=== PATIENT | female | born 1970 | race Caucasian/White ===

== ENCOUNTER 2020-09-01 01:25 | Outpatient (CLI) | payer OTHER, SELFPAY ==
--- NOTE | 2020-09-01 | DI.MAMMO_ITS ---
EXAM: MG MAMMO SCREENING CLINICAL HISTORY: SCREENING, Z12.31. TECHNIQUE: Bilateral full field digital CC and MLO mammographic images were obtained with 3D tomosyn thesis and utilizing computer aided detection (CAD). COMPARISON: Prior mammograms dating back to 2014, the most recent being 2016. Left breast ultrasoun d performed May 2017 was also reviewed. FINDINGS: In the right breast on 3D MLO imaging there is a subtle suggestion of an oval noncalcified 14 by 10 m illimeter nodule, this located 10 centimetres in from the nipple. In the left breast on 3D MLO imaging there is a well-defined noncalcified nodule measuring 7 x 6 mill imeters, lateral of center and located 8 centimetres in from the nipple. There are no malignant-appe aring microcalcification groups in either breast. There is no significant architectural distortion n or skin thickening-retraction. IMPRESSION: There is at least 1 nodule in each breast as described above. Given these bilateral mammographic fin dings, the findings on prior ultrasound examination of May 2017, and the density of her fibroglan dular tissue I recommend bilateral breast ultrasound. BI-RADS Category 0 - Assessment Incomplete: Need additional imaging evaluation Breast Density - Category C - Heterogeneously dense Breast density Category C or D implies that the patient has dense breast tissue. Dense breast tissue can make it harder to find cancer on a mammogram. Dense breast tissue is also associated with an incr eased risk of breast cancer. This information about the result of the mammogram report was provided to the patient to raise their awareness. Use this report when you speak with the patient about their risks for breast cancer, which includes their family history. At that time, you may recommend additional screening tests (Ultrasoun d or MRI) as these tests may add significant information. A negative radiographic report should not delay biopsy if a dominant or clinically suspicious mass is present. Up to ten percent of cancers are not identified on mammography. A negative report may reinforce clinical impression. Adenosis and dense breasts may obscure an underlying neoplasm. False positive reports average 6 to 10%. Patient will receive a letter notifying them of these results.
== END 2020-09-01 01:45 ==
PROVIDERS: PCP Family Medicine; Visit Provider Family Medicine
DX: Z12.31 Encounter for screening mammogram for malignant neoplasm of breast (principal); R92.8 Other abnormal and inconclusive findings on diagnostic imaging of breast
CPT/HCPCS: 77063; 77067

== ENCOUNTER 2020-09-02 03:01 | Outpatient (CLI) | payer OTHER, SELFPAY ==
--- NOTE | 2020-09-02 | DI.US_ITS ---
EXAM: US BREAST LT LIMITED CLINICAL HISTORY: F/U MAMMO, INCONLUSIVE,LT BREAST NODULE,DENSE BREAST TISSUE. TECHNIQUE: Ultrasound of the left breast was performed. COMPARISON: Prior mammograms were reviewed. Most recent mammogram 09/01/2020 FINDINGS: At 12 o'clock position there is a 5 x 4 millimeter microcyst. This most probably corresponds to the finding on the mammogram. At the 2 o'clock position there is a hemorrhagic microcyst measuring 7 x 4 millimeters. At the 6 o'c lock position there is a 5 x 3 millimeter microcyst. No other focal left breast findings.. No facet findings in the immediate retroareolar region. No adenopathy in the left axillary region IMPRESSION: Left breast microcysts as well as a hemorrhagic microcyst (2 o'clock position). Appropriate follow-up is to keep this patient yearly mammogram schedule, with earlier imaging if a se lf detected breast change is noted. BI-RADS Category 2 - Benign Findings Breast Density - Category C - Heterogeneously dense Breast density Category C or D implies that the patient has dense breast tissue. Dense breast tissue can make it harder to find cancer on a mammogram. Dense breast tissue is also associated with an incr eased risk of breast cancer. This information about the result of the mammogram report was provided to the patient to raise their awareness. Use this report when you speak with the patient about their risks for breast cancer, which includes their family history. At that time, you may recommend additional screening tests (Ultrasoun d or MRI) as these tests may add significant information. A negative radiographic report should not delay biopsy if a dominant or clinically suspicious mass is present. Up to ten percent of cancers are not identified on mammography. A negative report may reinforce clinical impression. Adenosis and dense breasts may obscure an underlying neoplasm. False positive reports average 6 to 10%. Patient will receive a letter notifying them of these results.
--- NOTE | 2020-09-02 | DI.US_ITS ---
EXAM: US BREAST RT LIMITED CLINICAL HISTORY: F/U MAMMO, INCONCLUSIVE,? NODULE RT BREAST. TECHNIQUE: Ultrasound of the right breast was performed. All 4 quadrants scanned as well as immedia te retroareolar region and the axillary region. COMPARISON: Prior mammograms were reviewed. Most recent mammogram 09/01/2020 FINDINGS: At the 9 o'clock position there is a 15 x 16 millimeter cyst which corresponds to the finding on the mammogram. Adjacent to this is a slightly smaller cyst. At the 8 o'clock position there is a 10 x 5 millimeter cyst noted. At the 12 o'clock supra-areolar position there is a 6 x 3 millimeter microcysts. At the 7 o'clock po sition there are 2 hemorrhagic microcyst in both measuring 5-6 millimeters. At the 9 o'clock positio n there are 3 adjacent microcysts, the largest measuring 8 x 5 millimeters. No ominous solid lesions seen in the right breast. No worrisome areas of decreased through transmiss ion. IMPRESSION: Multiple cysts and microcysts. One of these cysts account for the finding on the recent mammogram. Most importantly, there are no solid lesions evident on this ultrasound examination Appropriate follow-up is to keep this patient on a yearly mammogram schedule. Recommend repeat bilat eral breast ultrasound examination of the time but X yearly mammogram, with earlier imaging if a self detected breast changes noted.. BI-RADS Category 2 - Benign Findings Breast Density - Category C - Heterogeneously dense Breast density Category C or D implies that the patient has dense breast tissue. Dense breast tissue can make it harder to find cancer on a mammogram. Dense breast tissue is also associated with an incr eased risk of breast cancer. This information about the result of the mammogram report was provided to the patient to raise their awareness. Use this report when you speak with the patient about their risks for breast cancer, which includes their family history. At that time, you may recommend additional screening tests (Ultrasoun d or MRI) as these tests may add significant information. A negative radiographic report should not delay biopsy if a dominant or clinically suspicious mass is present. Up to ten percent of cancers are not identified on mammography. A negative report may reinforce clinical impression. Adenosis and dense breasts may obscure an underlying neoplasm. False positive reports average 6 to 10%. Patient will receive a letter notifying them of these results.
== END 2020-09-02 03:21 ==
PROVIDERS: PCP Family Medicine; Visit Provider Family Medicine
DX: N60.02 Solitary cyst of left breast (principal); R92.8 Other abnormal and inconclusive findings on diagnostic imaging of breast; R92.2 Inconclusive mammogram; N60.01 Solitary cyst of right breast
CPT/HCPCS: 76642

== ENCOUNTER 2020-10-13 21:06 | Outpatient (REF) | payer OTHER, SELFPAY | END 2020-10-13 21:07 | disposition home or self-care (01) | LOC: LBN 21:06 | PROVIDERS: PCP Family Medicine; Visit Provider Nurse Practitioner Family | DX: R30.0 Dysuria (principal) | CPT/HCPCS: 87077; 87086; 87186 ==

== ENCOUNTER 2021-08-08 16:54 | Outpatient (REF) | payer OTHER, SELFPAY ==
[2021-08-08 14:52] LABS: Abs Immature Grans 0.01 10^3/uL (0.0-0.06); Absolute Basophil Count 0.03 10^3/uL (0.0-0.2); Absolute Eosinophil Count 0.08 10^3/uL (0.0-0.7); Absolute Lymphocyte Count 2.19 10^3/uL (1.2-3.4); Absolute Monocyte Count 0.47 10^3/uL (0.1-0.8); Absolute Neutrophil Count 2.95 10^3/uL (1.2-6.7); Basophils % 0.5; Eosinophils % 1.4; HGB 14.1 g/dL (11.2-15.7); Immature Grans % 0.2; Lymphocytes % 38.2; MCH 30.3 pg (27.0-33.0); MCHC 33.6 % (32.0-36.0); MCV 90.1 fL (80-95); MPV 9.7 fL (8.0-11.0); Monocytes % 8.2; Neutrophils % 51.5; Nucleated RBC 0 %; Platelet Count 323 10^3/uL (130-400); RBC 4.66 10^6/uL (3.93-5.22); RDW-SD 42.6 fL; WBC 5.73 10^3/uL (4.4-10.8)
[2021-08-08 15:03] LABS: Mono Screening Negative (Negative)
== END 2021-08-08 16:55 | disposition home or self-care (01) ==
LOC: LBN 16:54
PROVIDERS: PCP Family Medicine; Visit Provider Nurse Practitioner Family
DX: J02.9 Acute pharyngitis, unspecified (principal)
CPT/HCPCS: 85025; 86308

== ENCOUNTER → 2023-03-29 00:33 | Outpatient (CLI) | payer BC, SELFPAY ==
--- NOTE | 2023-03-29 08:00 | DI.MAMMO_ITS ---
Exam(s) MAMMO SCREENING EXAM: MAMMO SCREENING CLINICAL HISTORY: SCREENING MAMMO FOR BREAST CANCER Z12.31 TECHNIQUE: Bilateral full field digital CC and MLO mammographic images were obtained with 3D tomosyn thesis and utilizing computer aided detection (CAD). COMPARISON: Available for comparison. FINDINGS: Masses/Architectural Distortion: None seen. Microcalcifications: No suspicious pleomorphic-type are seen. Skin Thickening/Nipple Retraction: None. IMPRESSION: 1. No significant interval change with no specific features of malignancy noted. 2. Unless there is more urgent need, screening mammography is recommended, as per [place] [employer] guidelines. BI-RADS Category 1 - Negative Breast Density - Category C - Heterogeneously dense Breast density category C or D implies that the patient has dense breast tissue. Dense breast tissue is very common and is not abnormal but dense breast tissue can make it harder to find cancer on a ma mmogram. Also, dense breast tissue may increase their breast cancer risk. This information about the result of the mammogram report was provided to the patient to raise their awareness. Use this report when you speak with the patient about their risks for breast cancer, which includes their family hist ory. At that time, you may recommend for more screening tests (Ultrasound or MRI) as they might be us eful based on their risk. A negative radiographic report should not delay biopsy if a dominant or clinically suspicious mass is present. Up to ten percent of cancers are not identified on mammography. A negative report may reinforce clinical impression. Adenosis and dense breasts may obscure an underlying neoplasm. False positive reports average 6 to 10%. Patient will receive a letter notifying them of these results.
== END ==
PROVIDERS: PCP Family Medicine; Visit Provider Family Medicine
DX: Z12.31 Encounter for screening mammogram for malignant neoplasm of breast (principal)
CPT/HCPCS: 77063; 77067

== ENCOUNTER 2023-07-10 06:58 | Day surgery (SDC) | payer OTHER, SELFPAY ==
--- NOTE | 2023-07-10 05:15 | W.ANESPRE ---
General Info Date of Service Date Performed: 07/10/23 Height: 5 ft 6 in Weight: 86.183 kg Body Mass Index (BMI): 30.7 Surgical Procedure: Operation Date: 07/10/23 08:20 Proposed Procedure Side Surgeon p Hans Kincaid MD Meds Allergies and Home Medications Allergies Allergy/AdvReac Type Severity Reaction Status Date / Time Penicillins Allergy Intermediate Skin Rash Verified 07/10/23 07:22 Sulfa (Sulfonamide Allergy Intermediate Skin Rash Verified 07/10/23 07:22 Antibiotics) Home Medication Medication Instructions Recorded bisacodyl 5 mg tablet,delayed 5 mg PO ONCE Colonoscopy Bowel 06/13/23 release (Dulcolax (bisacodyl)) Prep #4 tabs polyethylene glycol 3350 17 238 g PO ONCE Colonoscopy Bowel 06/13/23 gram/dose oral powder Prep #238 grams Current Visit Medications: Current Medications Generic Name Dose Route Start Last Admin Trade Name Freq PRN Reason Stop Dose Admin Ringer's Solution 1,000 mls @ 80 mls/hr 07/10/23 06:00 IV 08/08/23 23:59 INFUSION GERRI IV Miscellaneous Supplies 1 each 07/10/23 06:00 Iv Access IV 08/08/23 23:59 DIRECTED GERRI Sodium Chloride 0 ml 07/10/23 06:00 Normal Saline Flush 10 Ml Syr IV 08/08/23 23:59 PRN PRN Sodium Chloride 0 ml 07/10/23 06:00 Normal Saline 10 Ml Vial IJ 08/08/23 23:59 DIRECTED PRN Sterile Water 0 ml 07/10/23 06:00 Water,Injection,Sterile 10 Ml Vial IJ 08/08/23 23:59 DIRECTED PRN [facility] Medical History Medical History History of gestational diabetes Surgical History Surgical History History of section 1990 History of tonsillectomy DOS 1982 Tobacco Smoking/Tobacco Use Status: Never Alcohol Alcohol Intake: current Alcohol intake frequency: a few times a month Alcohol type: wine and hard liquor Substance Use Substance use: Never Substance use type: does not use Vital Signs and Lab Results Vital Signs Most Recent Vital Signs in EMR: Temp Pulse Resp BP Pulse Ox 36.5 C 86 18 142/92 H 97 07/10/23 07:27 07/10/23 07:27 07/10/23 07:27 07/10/23 07:27 07/10/23 07:27 Lab Results Blood Type / Crossmatch: No Data to Display Complete Blood Count: No Data to Display Complete Metabolic Panel: No Data to Display Liver Function Panel: No Data to Display Coagulation Panel: No Data to Display Cardiac Panel: No Data to Display Arterial Blood Gas: No Data to Display Venous Blood Gas: No Data to Display Pancreas Panel: No Data to Display Thyroid Panel: No Data to Display Infectious Disease: No Data to Display Blood Cultures: No Data to Display Toxicology Panel: No Data to Display Panel: No Data to Display Anesthesia Assessment and Plan Anesthesia History Personal History: No History of Anesthesia Complications Family History: No Family History of Anesthesia Complications Exercise Tolerance Exercise Tolerance: Metabolic Equivalents>4 Cardiac & Pulmonary Exam Cardiac Exam: Normal S1/S2 Heart Sounds Pulmonary Exam: Clear Bilateral Breath Sounds Implantable Cardiac Device Does patient have a Pacemaker or an ICD?: No Airway Exam Known Difficult Airway: No Mallampati Class: 3 Mouth Opening: Narrow (< 3cm) Thyromental Distance: Greater than 3 cm Neck Range of Motion: Full ROM Neck Circumference: Normal Teeth Condition: Normal Dentition ASA Classification ASA Score: ASA 2 Emergency Case?: No NPO Status NPO Status: NPO Clears >2 hours, Solids >8 hours Status Status: Negative HCG Anesthesia Plan Resuscitation Status: Full Code Anesthesia Technique: General Anesthesia Airway Planned: Natural Airway Monitors Used: Standard Monitors Preoperative Comments:: 52 yo female for colo. Sig PMHx: never smoker, occ EtOH.
[2023-07-10 07:27] VITALS: BP 142/92; PULSE 86; RESP 18; TEMP 36.5; O2SAT 97
[2023-07-10] MEDS: Lactated Ringers 1,000 ML 80 ML IV (07:33)
[2023-07-10 07:59] VITALS: BMI 30.7
--- NOTE | 2023-07-10 08:17 | COLE_ITS ---
Date of service: 07/10/23 Time of Service: 08:19 Colonoscopy Report Procedure: PROCEDURES PERFORMED: 1. Colonoscopy PREOPERATIVE DIAGNOSIS: Screening colonoscopy POSTOPERATIVE DIAGNOSIS: Grade 1 internal hemorrhoids, Diverticulosis SURGEON: Justyn Kincaid MD INDICATION for procedure: The patient is a 52-year-old woman with no symptoms. No family history of colon cancer. No prior colonoscopy. FINDINGS: Normal terminal ileum. No polyps. No inflammation. Moderate div erticular disease is present in the left colon but no stricture or active inflammation. Mild, grade 1 internal hemorrhoids. SURVEILLANCE?INTERVAL/FOLLOW-UP: 10 years. EBL: Minimal COMPLICATIONS: None QUALITY of prep: Excellent Procedure in detail: The patient gave written consent and was in agreement with the indications, the potential risks as well as the benefits of the procedure. He was taken to the endoscopy suite and laid in the left lateral decubitus position. A timeout was performed and anesthesia was administered which was tolerated well. I started the procedure. Digital rectal and visual examination was performed and grossly within normal limits. A well-lubricated flexible colonoscope was then introduced and passed without any notable difficulty all the way to the cecum identified by the ileocecal valve and the appendiceal orifice. The terminal ileum was briefly intubated and looked normal visually. The scope was then slowly withdrawn with the above-noted findings. The patient tolerated the procedure well and was taken to the PACU in hemodynamically stable condition.
--- NOTE | 2023-07-10 08:52 | W.PM.DSUDISC ---
Date of service: 07/10/23 Time of Service: 08:52 Discharge Plan Disposition Patient Disposition: Home Condition: Good Discharge Details Attending Provider: Burt Kincaid Primary Care Provider: Kaley Ventura Home Meds and New Rx's Prescriptions: No Action bisacodyl [Dulcolax (bisacodyl)] 5 mg tablet,delayed release (DR/EC) 5 mg PO ONCE Qty: 4 0RF Rx Instructions: Colonoscopy Bowel Prep- Per Instructions polyethylene glycol 3350 17 gram/dose powder 238 g PO ONCE Qty: 238 0RF Rx Instructions: Colonoscopy Bowel Prep- Per Instructions Discharge Instructions Additional Instructions: FINDINGS: No polyps or concerning lesions were found. Everything looks healthy. Diverticular findings were present today. This is extremely common, benign and nothing needs to be done about it as long as you do not have chronic symptoms from it. Mild hemorrhoid disease was also found today. Again, this is benign, extremely common and nothing needs to be done about it. Stand Alone Forms: Colonoscopy Post Instructions Activity:: Activity as Tolerated Diet:: As Tolerated
[2023-07-10 08:54] VITALS: BP 128/86; PULSE 82; RESP 16; TEMP 36.6; O2SAT 97
--- NOTE | 2023-07-10 08:56 | W.ANESPOSTOP ---
Postoperative Evaluation Date, Time and Location Date Performed: 07/10/23 Time Performed: 08:47 Patient Location: Day Surgery Unit Vital Signs Most Recent Imported Vital Signs: Most Recent Vital Signs Temp Pulse Resp BP Pulse Ox 36.6 C 82 16 128/86 97 07/10/23 08:54 07/10/23 08:54 07/10/23 08:54 07/10/23 08:54 07/10/23 08:54 Pain Score Most Recent Pain Score: Most Recent Pain Score Pain Level 0 07/10/23 08:54 Assessment Mental Status: Awake (Alert & Oriented to Patient Baseline) Airway and Respiratory Function: Patent airway with normal (patient baseline) respiratory exam Cardiovascular Function: Hemodynamically Stable Hydration Status: Adequately Hydrated Nausea & Vomiting: No Nausea or Vomiting Pain: Pt. Denies Any Pain Peripheral Nerve Block: Patient did not receive a nerve block
[2023-07-10 09:20] VITALS: BP 144/84; PULSE 66; RESP 16; TEMP 36.4; O2SAT 100
== END 2023-07-10 06:59 | disposition home or self-care (01) ==
PROVIDERS: PCP Family Medicine; Visit Provider Student in an Organized Health Care Education/Training Program
PROC: 0DJD8ZZ Inspection of Lower Intestinal Tract, Via Natural or Artificial Opening Endoscopic (ICD-10-PCS; CPT 45378; principal; 2023-07-10 08:15)
DX: Z12.11 Encounter for screening for malignant neoplasm of colon (principal); K64.0 First degree hemorrhoids; K57.30 Diverticulosis of large intestine without perforation or abscess without bleeding
CPT/HCPCS: 45378; 00123; J2001

== ENCOUNTER 2023-12-21 07:27 | Emergency (ER) | payer BC, SELFPAY ==
[2023-12-21] VITALS (23 sets, daily range): BP systolic 145–198; BP diastolic 76–115; PULSE 65–84; RESP 11–33; TEMP 36.4; O2SAT 97
--- NOTE | 2023-12-21 07:41 | W.ED.GENAD ---
Discharge Plan Disposition Patient Disposition: Home Condition: Stable Discharge Details Clinical Impression: Abdominal pain Primary Care Provider: Kaley Ventura ED Provider: Pato Byrne Home Meds and New Rx's Prescriptions: New omeprazole 20 mg capsule,delayed release(DR/EC) 20 mg PO DAILY 28 Days Qty: 28 0RF Discharge Instructions Additional Instructions: Your gallbladder did not show any concerning findings, you do have findings that are concerning for possible uterine cancer which will need further outpatient workup. Follow-up with your primary care provider within 1 week, discussed the CT findings and that you should have a ultrasound of your uterus If you feel more ill or have new symptoms such as high fevers or persistent vomiting return to the emergency department for reevaluation HPI General Mode of arrival: ambulatory. Date/Time Provider Initiated Documentation: 12/21/23 07:29. Limitations to Documentation: no limitations. Information obtained by: patient. History of Present Illness 53 year old F presents to the emergency department with the chief complaint of Abdominal pain, described as moderate, Quality is described as stabbing, and is localized to the abdomen. Patient reports no radiation. and it has been constant. No relieving factors improve symptom(s), No exacerbating factors reported . Patient notes no other symptoms.; denies chest pain, fever/chills and shortness of breath. Patient did receive the following treatments prior to arrival, none Related Data Home Medications Medication Instructions Recorded Confirmed omeprazole 20 mg capsule,delayed 20 mg PO DAILY 28 days #28 caps 12/21/23 release Previous Rx's Medication Instructions Recorded omeprazole 20 mg capsule,delayed 20 mg PO DAILY 28 days #28 caps 12/21/23 release Allergies Allergy/AdvReac Type Severity Reaction Status Date / Time Penicillins Allergy Intermediate Skin Rash Verified 12/21/23 07:36 Sulfa (Sulfonamide Allergy Intermediate Skin Rash Verified 12/21/23 07:36 Antibiotics) General Stated Complaint: Abd Prob NANETTE: 3 Review of Systems All systems reviewed & are unremarkable except as noted in HPI and below Constitutional Constitutional: Denies chills, Denies fever(s) and Denies weakness Cardiovascular Cardiovascular: Denies chest pain and Denies dyspnea Respiratory Respiratory: Denies cough and Denies dyspnea Gastrointestinal Gastrointestinal: Reports abdominal pain, Reports nausea and Reports vomiting Genitourinary Genitourinary: Denies dysuria Integumentary/Breasts Skin/Breast: Denies rash Neurologic Neurologic: Denies weakness Exam Const General: no acute distress Orientation: alert [facility] Head: normal to inspection Ears: external ears normal General nose exam: external nose normal Mouth: moist mucous membranes Eyes General: appearance normal, both eyes and all related structures Neck Neck: normal visual inspection Resp Effort & Inspection: normal respiratory effort and able to speak in complete sentences Cardio Rate: regular rate GI Palpation: soft, not firm and tender Skin General skin exam: no rashes or lesions noted Neuro General: patient alert and patient oriented x3 Extrem General: normal to inspection Psych Mental Status: mental status grossly normal Course Vital Signs Vital signs: Vital Signs Respiratory Rate 33 H 12/21/23 07:34 Temperature 36.4 C L 12/21/23 07:37 Temperature Source Temporal Artery Scan 12/21/23 07:37 Pulse 79 12/21/23 07:37 Pulse 82 12/21/23 07:35 Respiratory Rate 19 12/21/23 07:37 Respiratory Effort Normal, Non-Labored 12/21/23 07:38 Blood Pressure 195/115 H 12/21/23 07:37 Blood Pressure Mean 144 12/21/23 07:35 Blood Pressure Position Supine 12/21/23 07:37 Pulse Oximetry 97 12/21/23 07:37 Oxygen Delivery Method Room Air 12/21/23 07:37 Oxygen Flow Rate 0 12/21/23 07:37 Pain Level 7 12/21/23 07:39 Medical Decision Making 53-year-old female with a history of prior otherwise no significant past medical history comes in with complaints of upper right-sided and epigastric pain since 3 AM. She says she went to bed feeling well, then woke up at 3 AM with sharp stabbing pain in the previous mentioned area. Also has had several episodes of vomiting. Denies any fevers, chest pain, difficulty breathing, lower abdominal pain. She is alert and oriented x 4 on arrival speaking clearly in no distress. She has a soft abdomen with tenderness in the epigastric and right upper quadrant. No lower abdominal tenderness, concern for cholecystitis versus pancreatitis among other entities. Will obtain CBC, CMP, lipase and obtain CT abdomen pelvis to evaluate further. Labs unremarkable, CT shows gastric thickening which could be due to underdistention but cannot exclude gastritis or neoplasm. Also the area decrease in his middle spleen which could be due to an infarct, has no left-sided pain so doubt that this is the cause of her pain, they also note nonspecific enlarged lymph nodes in her abdomen and has heterogeneous appearing endometrium cannot exclude neoplasm. Concern for possible endometrial cancer unfortunately do not have ultrasound the weekends. She is feeling improved, given the location of pain this could be due to gastritis, will place her on a PPI. She had no guarding or rebound or other concerning findings on abdominal exam so feel she can be worked up as an outpatient. I advised she should follow-up with her PCP to likely have a outpatient ultrasound done. Return precautions given Differential Diagnosis Differential Diagnosis: Cholecystitis, pancreatitis, biliary colic Medical Records Medical records reviewed: Yes I reviewed the patient's medical records. Imaging Data Radiologic Study: Attestation: I personally reviewed and interpreted this imaging study as follows: Imaging: CT Scan Radiologist's impression: IMPRESSION: 1. 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 This is of indeterminate chronicity. Clinical correlation and comparison with prior studies advised. 2. Gastric thickening likely secondary to underdistention. Cannot exclude gastritis or neoplasm. Follow-up if clinically warranted. 3. Heterogeneous endometrium. Cannot exclude endometrial pathology. Consider ultrasound or MRI for further evaluation as clinically warranted. 4. Additional findings as above Lab Data Lab results reviewed: Yes I reviewed the patient's lab results. Quality:SDOH Health Related Social Needs: No Data to Display PFSH All Active Problems (Updated 12/21/23 @ 09:40 by Pato Byrne MD) Abdominal pain (Acute) Medical History (Updated 12/21/23 @ 09:40 by Pato Byrne MD) History of gestational diabetes Surgical History History of section 1990 History of tonsillectomy DOS 1983 Social History (Updated 06/13/23 @ 15:11 by DOMENICO Bowen) Smoking/Tobacco Use Status: Never Smoking risk assessment performed?: Yes Alcohol Intake: current Alcohol Intake frequency: a few times a month Alcohol type: wine and hard liquor Drug use: Never Substance use type: does not use Housing: house Do you feel safe at home: Yes Do you feel safe in your relationship?: Yes
[2023-12-21] MEDS: Ketorolac 15 MG/ML VIAL IVP (07:53)
[2023-12-21] MEDS: Normal Saline 1,000 ML 1000 ML IV (07:53)
[2023-12-21 08:06] LABS: Abs Immature Grans 0.03 10^3/uL (0.0-0.06); Absolute Basophil Count 0.03 10^3/uL (0.0-0.2); Absolute Eosinophil Count 0.06 10^3/uL (0.0-0.7); Absolute Lymphocyte Count 2.09 10^3/uL (1.2-3.4); Absolute Monocyte Count 0.42 10^3/uL (0.1-0.8); Absolute Neutrophil Count 5.46 10^3/uL (1.2-6.7); Basophils % 0.4 %; Eosinophils % 0.7 %; HCT 39.5 % (36.0-46.0); HGB 13.4 g/dL (11.2-15.7); Immature Grans % 0.4 %; Lymphocytes % 25.8 %; MCH 30.6 pg (27.0-33.0); MCHC 33.9 % (32.0-36.0); MCV 90 fL (80-95); MPV 8.9 fL (8.0-11.0); Monocytes % 5.2 %; Neutrophils % 67.5 %; Platelet Count 349 10^3/uL (130-400); RBC 4.38 10^6/uL (3.93-5.22); RDW 13.2 % (11.7-14.6); WBC 8.09 10^3/uL (4.4-10.8)
[2023-12-21 08:20] LABS: ALT 34 U/L (14-59); AST 16 U/L (15-37); Albumin 3.8 g/dL (3.4-5.0); Alkaline Phosphatase 126 U/L (46-116); BUN 12 mg/dL (7-18); Bilirubin, Direct 0.1 mg/dL (0.0-0.2); Bilirubin, Total 0.2 mg/dL (0.2-1.0); CREATININE 0.9 mg/dL (0.55-1.02); Chloride 105 mmol/L (98-107); Glucose 119 mg/dL (74-106); Lipase 20 U/L (16-77); Magnesium 1.9 mg/dL (1.8-2.4); Potassium 3.9 mmol/L (3.5-5.1); Sodium 143 mmol/L (136-145); Total Protein 7.3 g/dL (6.4-8.2)
[2023-12-21] MEDS: Omnipaque 350 MG/ML 100 ML BTL IJ (08:43)
[2023-12-21] MEDS: Normal Saline - Diluent 50 ML VIAL IJ (08:43)
--- NOTE | 2023-12-21 08:51 | DI.CT_ITS ---
Exam(s) CT ABDOMEN PELVIS W EXAM: CT ABDOMEN PELVIS W CLINICAL HISTORY: right sided abdominal pain. TECHNIQUE: Imaging Protocol: Axial computed tomography images with coronal and sagittal reformatted images were created and reviewed CONTRAST MATERIAL: Intravenous: Omnipaque-350 100cc Oral: None COMPARISON: No exams were available for comparison FINDINGS: VISUALIZED LUNG BASES: No nodules nor pleural effusions evident. ABDOMEN: There is no ascites. LIVER: There few cysts in the right hepatic lobe measuring up to 1.1 cm. No dilated intrahepatic adrienne ts. GALLBLADDER/BILIARY: No obvious gallbladder pathology. CBD is not dilated. PANCREAS: No evidence of pancreatic mass nor dilatation of the pancreatic duct. SPLEEN: Spleen is not enlarged. However, there is a geographic area of hypodensity in the anterior a spect of the spleen. Probably representing an infarct, age indeterminate. Splenic and portal veins are patent. Splenic artery patent. ADRENALS: There are no significant adrenal masses. KIDNEYS:Parapelvic cysts noted in both kidneys. No solid renal masses. There is a small 3 millimete r nonobstructive calculus in lower pole the right kidney. No solid renal masses. No calculi nor hyd ronephrosis.. ABDOMINAL AORTA: Abdominal aorta is not enlarged. LYMPH NODES:There is no retroperitoneal nor paraaortic adenopathy. ABDOMINAL WALL: No evidence of significant anterior abdominal wall nor inguinal hernia. GI: There is no evidence of bowel obstruction, free air, nor abscess. PELVIS: GI: No evidence of appendicitis.Under distension of the transverse colon. There is extensive sigmoid diverticulosis of the left side of the colon including the descending left colon and sigmoid. No ob vious acute diverticulitis. No free fluid. LYMPH NODES: There is no intrapelvic nor inguinal adenopathy. REPRODUCTIVE: Endometrium appears slightly thickened. There is an enhancing lesion in the right-side of the uterus measuring approximately 11 x 15 millimeters. No abnormal adnexal masses. URINARY BLADDER: No calculi nor obvious masses evident OSSEOUS: No fractures and no significant osseous lesions. IMPRESSION: 1. Focal area of decreased enhancement in the anterior aspect of the spleen which is probably an infa rct of indeterminate age. Splenic vein and splenic artery are patent. Calcified granulomas are also noted in the spleen as well as in the liver. 2. There is a nonobstructive 3 millimeter calculus in lower pole the right kidney. No hydronephrosis . No hydroureter. No radiopaque calculi in the urinary bladder. No solid renal masses. 3. Thickened endometrium. Should be further studied with ultrasound. There is also an enhancing les ion the right-side of the uterus measuring 1.1 x 1.5 cm. This may represent a fibroid or polyp. 4. Other findings as above. RADIATION DOSE DELIVERED: 1,231.17mGy.cm Total DLP DATA REPOSITORY: All CT scans at this facility are submitted to the National Radiology Data Registry (NRDR) Dose Index Registry (DIR) with the [employer] (A[employer]). RADIATION OPTIMIZATION: All CT scans at this facility use at least one of these dose optimization te chniques: automated exposure control; mA and/or kV adjustment per patient size (includes targeted exa ms where dose is matched to clinical indication); or iterative reconstruction.
--- NOTE | 2023-12-21 09:13 | DI.VRAD_ITS ---
PROCEDURE INFORMATION: Exam: CT Abdomen And Pelvis With Contrast Exam date and time: 12/21/2023 8:43 AM Age: 53 years old Clinical indication: Other: Right sided pain TECHNIQUE: Imaging protocol: Computed tomography of the abdomen and pelvis with contrast. Contrast material: OMNIPAQUE 350; Contrast volume: 100 ml; Contrast route: INTRAVENOUS (IV); COMPARISON: No relevant prior studies available. FINDINGS: Diaphragm: Small hiatal hernia. Liver: Low attenuation lesions in the liver too small to accurately characterize on CT. 1.2 cm indeterminate enhancing focus in the left hepatic lobe. Gallbladder and bile ducts: No radiodense gallbladder calculi seen. Pancreas: No CT evidence for acute pancreatitis. Spleen: Irregular area of decreased enhancement in the anterior spleen. Adrenal glands: No mass. Kidneys and ureters: Bilateral parapelvic renal cysts. Small right renal calculus. Distended right renal pelvis. No ureteral calculi seen. Stomach and bowel: Distal gastric thickening commensurate with underdistention. No intestinal obstruction is evident. Colonic diverticula. Appendix: Normal appendix. Intraperitoneal space: No free air. Vasculature: Small calcified splenic artery aneurysm. Lymph nodes: Nonspecific mesenteric and retroperitoneal lymph nodes. Urinary bladder: No acute findings. Reproductive: Heterogeneity of the endometrium. Suspect small uterine fibroid. Bones/joints: No pertinent acute abnormality seen. Soft tissues: No pertinent acute abnormality seen. IMPRESSION: 1. 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 This is of indeterminate chronicity. Clinical correlation and comparison with prior studies advised. 2. Gastric thickening likely secondary to underdistention. Cannot exclude gastritis or neoplasm. Follow-up if clinically warranted. 3. Heterogeneous endometrium. Cannot exclude endometrial pathology. Consider ultrasound or MRI for further evaluation as clinically warranted. 4. Additional findings as above. Dictated and Authenticated by: Pura Jurado MD. Ordering:ERIC Whyte MD
[2023-12-21 09:14] LABS: Bilirubin Negative (Negative); Blood Negative (Negative); Clarity Clear (Clear); Glucose Negative (Negative); Ketones Negative (Negative); Leukocyte Esterase Negative (Negative); Nitrite Negative (Negative); Specific Gravity 1.015 (1.005-1.025); Urobilinogen 0.2 mg/dL (Up to 0.2)
== END 2023-12-21 09:57 | disposition home or self-care (01) ==
PROVIDERS: Emergency Provider Emergency Medicine; PCP Family Medicine
DX: R10.31 Right lower quadrant pain (principal); R11.2 Nausea with vomiting, unspecified
CPT/HCPCS: 80053; 83690; 96361; 96374; 99285; 74177; 81003; 82248; 83735; 85025; 99283; J1885; J3490

== ENCOUNTER 2024-02-25 01:26 | Outpatient (CLI) | payer BC, SELFPAY ==
[2024-02-25 13:28] LABS: Abs Immature Grans 0.02 10^3/uL (0.0-0.06); Absolute Basophil Count 0.04 10^3/uL (0.0-0.2); Absolute Eosinophil Count 0.09 10^3/uL (0.0-0.7); Absolute Lymphocyte Count 2.72 10^3/uL (1.2-3.4); Absolute Monocyte Count 0.51 10^3/uL (0.1-0.8); Absolute Neutrophil Count 3.37 10^3/uL (1.2-6.7); Basophils % 0.6 %; Eosinophils % 1.3 %; HCT 39.4 % (36.0-46.0); Immature Grans % 0.3 %; Lymphocytes % 40.3 %; MCH 30.2 pg (27.0-33.0); MCV 91 fL (80-95); MPV 9.1 fL (8.0-11.0); Monocytes % 7.6 %; Neutrophils % 49.9 %; Platelet Count 334 10^3/uL (130-400); RBC 4.31 10^6/uL (3.93-5.22); RDW 13.3 % (11.7-14.6); RDW-SD 45.5 fL; WBC 6.75 10^3/uL (4.4-10.8)
== END 2024-02-25 01:27 | disposition home or self-care (01) ==
LOC: LBO 01:26
PROVIDERS: PCP Family Medicine; Visit Provider Obstetrics & Gynecology
DX: Z01.818 Encounter for other preprocedural examination (principal); R93.89 Abnormal findings on diagnostic imaging of other specified body structures; N84.0 Polyp of corpus uteri
CPT/HCPCS: 36415; 86850; 86900; 86901; 85025

== ENCOUNTER 2024-02-26 05:52 | Day surgery (SDC) | payer BC, SELFPAY ==
[2024-02-26 06:36] VITALS: BP 133/84; PULSE 71; RESP 16; TEMP 36; O2SAT 96
[2024-02-26] MEDS: Lactated Ringers 1,000 ML 125 ML IV (07:05)
--- NOTE | 2024-02-26 07:17 | ANES.PREOP_ITS ---
General Info Date of Service Date Performed: 02/26/24 Height: 5 ft 6 in Weight: 90.2 kg Body Mass Index (BMI): 32.1 Surgical Procedure: Operation Date: 02/26/24 07:40 Proposed Procedure Side Surgeon p Dilation & Curettage with Hysteroscopy, Myosure Aylin Llanos DO Meds Allergies and Home Medications Allergies Allergy/AdvReac Type Severity Reaction Status Date / Time Penicillins Allergy Intermediate Skin Rash Verified 02/26/24 06:44 Sulfa (Sulfonamide Allergy Intermediate Skin Rash Verified 02/26/24 06:44 Antibiotics) Home Medication ?Medication ?Instructions ?Recorded Unknown [No Known Home Meds] 01/15/24 Current Visit Medications: Current Medications Generic Name Dose Route Start Last Admin Trade Name Freq PRN Reason Stop Dose Admin Ringer's Solution 1,000 mls @ 125 mls/hr 02/26/24 06:00 02/26/24 07:05 IV 02/26/24 23:59 125 mls/hr INFUSION GERRI Administration IV Miscellaneous Supplies 1 each 02/26/24 06:00 Iv Access IV 02/26/24 23:59 DIRECTED GERRI Sodium Chloride 0 ml 02/26/24 06:00 Normal Saline Flush 10 Ml Syr IV 02/26/24 23:59 PRN PRN Sodium Chloride 0 ml 02/26/24 06:00 Normal Saline 10 Ml Vial IJ 02/26/24 23:59 DIRECTED PRN Sterile Water 0 ml 02/26/24 06:00 Water,Injection,Sterile 10 Ml Vial IJ 02/26/24 23:59 DIRECTED PRN PFSH Active Problems Active Problems: Problem Status Onset Code Endometrial polyp Acute N84.0 Thickened endometrium Acute R93.89 Medical History Medical History History of gestational diabetes Surgical History Surgical History History of section 1990 History of tonsillectomy DOS 1982 Tobacco Smoking/Tobacco Use Status: Never Alcohol Alcohol Intake: current Alcohol intake frequency: a few times a month Alcohol type: wine and hard liquor Substance Use Substance use: Never Substance use type: does not use Prental History History 4 Para Hx # Term Pregnancies 4 Multiple births Hx # Pregnancies Ectopic pregnancies AB induced Hx Number of Living Children 4 AB spontaneous Past Pregnancies Del. Date GA/Weeks # Preg Succ Route Wgt Sex Labor Lgth Anesth esia Location Prov [facility] 12/13/90 3968.933 g Male 01/13/93 vaginal 4195.729 g Female 11/23/99 vaginal 3954.758 g Male 08/15/02 vaginal 3940.584 g Male Vital Signs and Lab Results Vital Signs Most Recent Vital Signs in EMR: Most Recent Vital Signs Temp Pulse Resp BP Pulse Ox 36 C L 71 16 133/84 96 02/26/24 06:36 02/26/24 06:36 02/26/24 06:36 02/26/24 06:36 02/26/24 06:36 Lab Results Blood Type / Crossmatch: Antibody Screen NEGATIVE 02/25/24 Complete Blood Count: White Blood Count 6.75 10^3/uL (4.4-10.8) 02/25/24 13:15 Red Blood Count 4.31 10^6/uL (3.93-5.22) 02/25/24 13:15 Hemoglobin 13.0 g/dL (11.2-15.7) 02/25/24 13:15 Hematocrit 39.4 % (36.0-46.0) 02/25/24 13:15 Platelet Count 334 10^3/uL (130-400) 02/25/24 13:15 Complete Metabolic Panel: No Data to Display Liver Function Panel: No Data to Display Coagulation Panel: No Data to Display Cardiac Panel: No Data to Display Arterial Blood Gas: No Data to Display Venous Blood Gas: No Data to Display Pancreas Panel: No Data to Display Thyroid Panel: No Data to Display Infectious Disease: No Data to Display Blood Cultures: No Data to Display Toxicology Panel: No Data to Display Anesthesia Assessment and Plan Anesthesia History Personal History: No History of Anesthesia Complications Family History: No Family History of Anesthesia Complications Exercise Tolerance Exercise Tolerance: Metabolic Equivalents>4 Pertinent Negatives Pertinent Negatives: No Symptoms of GERD, No Major Cardiovascular Symptoms or Complaints, No Major Pulmonary Symptoms or Complaints and No History of CVA/TIA Cardiac & Pulmonary Exam Cardiac Exam: Normal S1/S2 Heart Sounds Pulmonary Exam: Clear Bilateral Breath Sounds Implantable Cardiac Device Does patient have a Pacemaker or an ICD?: No Airway Exam Known Difficult Airway: No Mallampati Class: 3 Mouth Opening: Narrow (< 3cm) Thyromental Distance: Greater than 3 cm Neck Range of Motion: Full ROM Neck Circumference: Normal Teeth Condition: Normal Dentition ASA Classification ASA Score: ASA 2 Emergency Case?: No NPO Status NPO Status: NPO Clears >2 hours, Solids >8 hours Anesthesia Plan Resuscitation Status: Full Code Anesthesia Technique: General Anesthesia Airway Planned: Natural Airway Monitors Used: Standard Monitors
[2024-02-26 07:23] VITALS: BMI 32.1
--- NOTE | 2024-02-26 08:00 | ENDO_PTH ---
PATIENT: Lynne Alexander LOC: [facility] U#:[id number] AGE/SX: 53/F ROOM: RE02/26/[address]: Aylin Llanos DO : 1970 BED: DIS: 02/26/2024 SPEC #: [id number] RECD: 02/26/24 12:52 STATUS: KIRILL RE #: [id number] CHICHO: 02/26/24 08:[address]: Aylin Llanos DEPT: Surgical Specimen RECD BY: Sue Vargas ENTERED: 02/26/24 12:56 SP TYPE: Endo OTHR DR: Kaley Ventura Tissues: 1 - ENDOCERVICAL BX/CURRETTE 2 - ENDOMETRIUM BX/CURRETTE 3 - CERVICAL BIOPSY Procedures: GROSS AND MICRO LEVEL 4 Comments: [id number]
[2024-02-26 08:16] VITALS: BP 110/74; PULSE 80; RESP 16; TEMP 36.3; O2SAT 95
--- NOTE | 2024-02-26 08:16 | W.PM.OP ---
Date of service: 02/26/24 Time of Service: 08:16 Operative Note Operative Note DATE OF PROCEDURE: 02/26/24 PRE-OP DIAGNOSIS: Thickened endometrium POST-OP DIAGNOSIS: same (With endometrial polyp) PROCEDURE: Hysteroscopy with dilation and curettage, MyoSure. SURGEON: Aylin Llanos ANESTHESIA TYPE: MAC Refer to Anesthesia Record ESTIMATED BLOOD LOSS: 5 PATHOLOGY: other (1. Endocervical curettage 2. Endometrial curettage 3. Endometrial polyp) COMPLICATIONS: None Patient was transported to: same day Patient's condition: stable Indications: Thickened endometrium Findings: Smooth regular endometrium. Normal tubal ostia bilaterally. Small broad-based polyp in the lower uterine segment arising from the left sidewall. This was removed with the MyoSure device. Procedure Description: After full informed consent was obtained, patient was taken the operating suite with an IV running. She is placed in the dorsal supine position and general anesthesia administered. She was placed in the modified dorsal lithotomy position and prepped and draped in the usual sterile fashion. She had pneumatic compression stockings for DVT prophylaxis. No antibiotic prophylaxis was necessary. Exam under anesthesia revealed a uterus that was midline and mobile. Straight catheter was used to drain her bladder for approximately 75 cc of clear yellow urine. At this point a speculum was inserted into the vaginal vault and the single-tooth tenaculum used to grasp the anterior lip of the cervix. Cervical os dilated the point that a 4 mm hysteroscope could be passed without difficulty. With the fluid management system and instillation of normal saline the endometrial cavity was expanded and visualized. The endometrial cavity itself was smooth and regular. Both tubal ostia were visualized. There is noted to be a sessile, approximately 3 mm polyp at the lower uterine segment adherent to the left uterine sidewall. The MyoSure device was then inserted through its operative port and deployed to remove the polyp. The base was hemostatic. At this point, the hysteroscope portion of the procedure was terminated with a total fluid deficit of 75 cc of normal saline. Subsequently, a fractional dilation and curettage was performed first with gentle endocervical curetting and followed by endometrial curetting. All tissue was sent for pathologic examination. At this point tenaculum was removed and puncture sites were hemostatic. Speculum was removed and the patient was returned to the dorsal supine position. She awoke from anesthesia without difficulty. She was taken to the same-day surgical area in stable condition. Complications: None apparent Fluids: Crystalloid per anesthesia +75 cc of normal saline fluid deficit at the time of hysteroscope. Pathology: 1. Endocervical curettage 2. Endometrial curettage 3. Endometrial polyp Findings: Smooth regular endometrial cavity with visualization of both tubal ostia. 3 mm sessile polyp, removed.
--- NOTE | 2024-02-26 08:41 | W.ANESPOSTOP ---
Postoperative Evaluation Date, Time and Location Date Performed: 02/26/24 Time Performed: 08:42 Patient Location: Day Surgery Unit Vital Signs Most Recent Imported Vital Signs: Most Recent Vital Signs Temp Pulse Resp BP Pulse Ox 36.3 C L 80 16 110/74 95 02/26/24 08:16 02/26/24 08:16 02/26/24 08:16 02/26/24 08:16 02/26/24 08:16 Pain Score Most Recent Pain Score: Most Recent Pain Score Pain Level 0 02/26/24 08:16 Assessment Mental Status: Awake (Alert & Oriented to Patient Baseline) Airway and Respiratory Function: Patent airway with normal (patient baseline) respiratory exam Cardiovascular Function: Hemodynamically Stable Hydration Status: Adequately Hydrated Nausea & Vomiting: No Nausea or Vomiting Pain: Pain is tolerable per patient (uterine cramping) Peripheral Nerve Block: Patient did not receive a nerve block
[2024-02-26 08:51] VITALS: BP 130/84; PULSE 59; RESP 16; TEMP 36.2; O2SAT 99
== END 2024-02-26 09:08 | disposition home or self-care (01) ==
PROVIDERS: PCP Family Medicine; Visit Provider Obstetrics & Gynecology
PROC: 0UDB8ZZ Extraction of Endometrium, Via Natural or Artificial Opening Endoscopic (ICD-10-PCS; CPT 58558; principal; 2024-02-26 07:30)
DX: R93.89 Abnormal findings on diagnostic imaging of other specified body structures (principal); N84.0 Polyp of corpus uteri; N87.9 Dysplasia of cervix uteri, unspecified
CPT/HCPCS: 58558; 88305; J1885; J2001; J2405; J2704